=== PATIENT | female | born 1985 | race Caucasian/White ===

== ENCOUNTER 2021-01-24 01:08 | Emergency (ER) | payer OTHER, SELFPAY ==
[2021-01-24] MEDS ORDERED: Ketorolac Tromethamine 15 MG/ML VIAL ONE (01:43)
[2021-01-24] MEDS ORDERED: predniSONE 20 MG TAB ONE (01:43)
[2021-01-24] MEDS ORDERED: HYDROcodone/Acetaminophen 5/325 mg Tablet ONE (01:48)
== END 2021-01-24 03:02 | disposition home or self-care (01) ==
LOC: CSHERS 01:08
DX: M17.11 Unilateral primary osteoarthritis, right knee (principal); M06.9 Rheumatoid arthritis, unspecified
CPT/HCPCS: 96372; J1885; J7512

== ENCOUNTER 2022-08-11 23:40 | Emergency (ER) | payer SELFPAY | END 2022-08-12 00:33 | disposition left against medical advice (07) | LOC: CSHERS 23:40 | DX: Z53.21 Procedure and treatment not carried out due to patient leaving prior to being seen by health care provider (principal) ==

== ENCOUNTER 2023-12-04 17:42 | Emergency (ER) | payer OTHER, SELFPAY ==
[2023-12-04] MEDS ORDERED: Dexamethasone 4 mg/ml Vial ONE (18:54)
[2023-12-04] MEDS ORDERED: Morphine 4 MG/ML VIAL ONE (18:54)
[2023-12-04] MEDS ORDERED: Bupivacaine PF 0.5% 30 ML VIAL ONE (19:05)
== END 2023-12-04 19:39 | disposition home or self-care (01) ==
LOC: CSHERS 17:42
DX: M25.562 Pain in left knee (principal)
CPT/HCPCS: 93005; 96372; J0665; J1100; J2270